=== PATIENT | female | born 2000 | race Hispanic/Latino ===

== ENCOUNTER 2022-12-27 20:53 | Emergency (ER) | payer SELFPAY ==
[2022-12-27 21:11] VITALS: BP 118/82
== END 2022-12-27 23:13 | disposition left against medical advice (07) | DRG 151 ==
LOC: ED 20:53 → LWOBS 23:13 → ED 23:13
DX: R04.0 Epistaxis (principal); Z53.21 Procedure and treatment not carried out due to patient leaving prior to being seen by health care provider